=== PATIENT | female | born 1960 | race Caucasian/White ===

== ENCOUNTER 2017-04-17 20:15 | Emergency (ER) | payer MEDICARE, OTHER ==
[~2017-04-17] VITALS: Ht 157.5 cm; Wt 43.1 kg
[~2017-04-17 20:15] MED LIST: ALBU90OI INH; AMIT10; AMIT50 PO; AMOCLA500 PO; ATOR10 PO; CONEST.625 PO; CYCL10 PO; Cipro500 MG PO; ESTMEDA PO; FLURBIPROFEN PO; Flagyl500 MG PO; GABA300 PO; GABA400 PO; HYDACE5; HYDACE5 PO; HYDR1TAB94 PO; INDO25; LISI5 PO; MEDR2.5 PO; METPRE4DP PO; PRED10 PO; Zofran8 MG PO
== END 2017-04-17 23:33 | disposition home or self-care (01) ==
LOC: ER 20:15
DX: S59.201A Unspecified physeal fracture of lower end of radius, right arm, initial encounter for closed fracture (principal); S52.611A Displaced fracture of right ulna styloid process, initial encounter for closed fracture; F17.200 Nicotine dependence, unspecified, uncomplicated; Z88.2 Allergy status to sulfonamides; Z79.899 Other long term (current) drug therapy; W19.XXXA Unspecified fall, initial encounter; Y92.488 Other paved roadways as the place of occurrence of the external cause
CPT/HCPCS: 25605; 73090; 73100; 73110; 96374; 99284; J1170

== ENCOUNTER 2017-04-22 10:56 | Day surgery (SDC) | payer MEDICARE, OTHER ==
[~2017-04-22] VITALS: Ht 154.9 cm; Wt 43.1 kg
== END 2017-04-22 22:54 | disposition home or self-care (01) ==
LOC: ORSCMMR 10:56 → ORD 14:30 → ORSCMMR 14:30
PROVIDERS: Orthopaedic Surgery
PROC: 0PSH34Z Reposition Right Radius with Internal Fixation Device, Percutaneous Approach (ICD-10-PCS; principal; 2017-04-22 12:30)
DX: S52.501A Unspecified fracture of the lower end of right radius, initial encounter for closed fracture (principal); I10 Essential (primary) hypertension; M79.7 Fibromyalgia; R73.03 Prediabetes; Z79.899 Other long term (current) drug therapy; F17.210 Nicotine dependence, cigarettes, uncomplicated
CPT/HCPCS: 82947; C1769; J0171; J0690; J1200; J2250; J2405; J3010; J7120

== ENCOUNTER → 2018-09-15 | Outpatient (CLI) | payer MEDICARE ==
[2018-09-17 15:06] LABS: HPV 16 Negative (Negative); HPV 18 Negative (Negative); HPV OTHER HR TYPES Negative (Negative)
== END | disposition home or self-care (01) ==
LOC: LAB 16:00 → LAB SHORT 16:00
PROVIDERS: Family Medicine
DX: Z12.72 Encounter for screening for malignant neoplasm of vagina (principal); Z90.710 Acquired absence of both cervix and uterus
CPT/HCPCS: 87624; G0145

== ENCOUNTER 2018-12-30 08:03 | Day surgery (SDC) | payer MEDICARE | END 2018-12-30 22:59 | disposition home or self-care (01) | LOC: RAD 08:03 → MRI 10:00 → RAD 22:59 | DX: M19.031 Primary osteoarthritis, right wrist (principal); M24.131 Other articular cartilage disorders, right wrist | CPT/HCPCS: 20605; 73222; 77002; A9577; Q9967 ==

== ENCOUNTER 2019-01-05 10:10 | Day surgery (SDC) | payer MEDICARE ==
[~2019-01-05] VITALS: Ht 154.9 cm; Wt 43.2 kg
[2019-01-05] MEDS ORDERED: GABA300 PO (11:59)
[2019-01-05] MEDS ORDERED: ALBU90OI INH (12:00)
[2019-01-05] MEDS ORDERED: AMIT50 PO (12:02)
[2019-01-05] MEDS ORDERED: ESTR2 PO (12:03)
--- NOTE | 2019-01-05 14:09 | NUR ---
01/05/19 2729 Amrita Guzman PT ARRIVES TO SDU AND COMPLAINS HER LEGS ARE ITCHY, I ASKED IF THIS WAS SOMETHING NEW AND SHE STATES THAT THE WEATHER HAS DRIED OUT HER SKIN AND THAT IS WHY SHE IS ITCHY. SHE HAS NO COMPLAINTS OF PAIN OR NAUSEA, VSS, CALL LIGHT IN REACH AND THREE FAMILY MEMBERS ARE BY HER SIDE. SHE IS TOLERATING FLUIDS.
== END 2019-01-05 14:40 | disposition home or self-care (01) ==
LOC: ORSCSDS 10:10
PROVIDERS: Orthopaedic Surgery
PROC: 0RBN4ZZ Excision of Right Wrist Joint, Percutaneous Endoscopic Approach (ICD-10-PCS; principal; 2019-01-05 11:30)
DX: S63.301A Traumatic rupture of unspecified ligament of right wrist, initial encounter (principal); S52.501A Unspecified fracture of the lower end of right radius, initial encounter for closed fracture; I10 Essential (primary) hypertension; E11.9 Type 2 diabetes mellitus without complications; Z87.891 Personal history of nicotine dependence; Z79.899 Other long term (current) drug therapy
CPT/HCPCS: J0171; J0690; J1100; J2250; J2370; J2405; J2704; J2795; J3010; J7120

== ENCOUNTER 2023-02-20 08:05 | Day surgery (SDC) | payer MEDICARE ==
[2023-02-20] VITALS (10 sets, daily range): BP systolic 13–145; BP diastolic 61–101
[~2023-02-20] VITALS: Ht 154.9 cm; Wt 45.6 kg
[~2023-02-20 08:05] MED LIST changes: +BISA5EC PO; +ESTR2 PO; +HYDCHL25 PO; +NAPR500 PO
--- NOTE | 2023-02-20 08:51 | NUR ---
Ambulatory in Day Surgery History, Chart, Medications and Allergies reviewed before start of procedure.Pre-Op teaching done. Pt verbalizes understanding. Patient confirms NPO status and agrees with scheduled surgery. Patient States Post-Procedure ride home has been arranged.
--- NOTE | 2023-02-20 11:46 | NUR ---
Discharge instructions reviewed with patient. Patient verbalizes understanding. Copy given to patient to take home. PT ITCHING SKIN, NO OTHER COMPLAINTS. INSTRUCTED PT TO NOTIFY EITHER DAY SURGERY OR DR IBARRA'S OFFICE IF INCREASE IN ITCHINESS/ OR NEW SIGNS OF REACTION OCCUR. PT DRESSED AND Discharged via wheelchair to private car for ride home.
== END 2023-02-20 11:48 | disposition home or self-care (01) ==
LOC: ORSCMMR 08:05 → ORD 09:45 → ORSCMMR 11:48
PROVIDERS: Surgery
PROC: B543ZZA Ultrasonography of Right Jugular Veins, Guidance (ICD-10-PCS; principal; 2023-02-20 09:45)
PROC: 05HM33Z Insertion of Infusion Device into Right Internal Jugular Vein, Percutaneous Approach (ICD-10-PCS; principal; 2023-02-20 09:45)
PROC: 0JH63WZ Insertion of Totally Implantable Vascular Access Device into Chest Subcutaneous Tissue and Fascia, Percutaneous Approach (ICD-10-PCS; principal; 2023-02-20 09:45)
DX: C50.812 Malignant neoplasm of overlapping sites of left female breast (principal); C77.3 Secondary and unspecified malignant neoplasm of axilla and upper limb lymph nodes; Z17.0 Estrogen receptor positive status [ER+]; I10 Essential (primary) hypertension; J45.909 Unspecified asthma, uncomplicated; F17.210 Nicotine dependence, cigarettes, uncomplicated; E78.5 Hyperlipidemia, unspecified; Z85.41 Personal history of malignant neoplasm of cervix uteri; Z79.899 Other long term (current) drug therapy
CPT/HCPCS: 77001; C1788; J0690; J1100; J1200; J1642; J1720; J2250; J2371; J2405; J2704; J3010; J7120

== ENCOUNTER 2023-08-29 05:50 | Day surgery (SDC) | payer MEDICARE ==
[2023-08-29] VITALS (14 sets, daily range): BP systolic 101–153; BP diastolic 74–104
[~2023-08-29] VITALS: Ht 157.5 cm; Wt 43.2 kg
[~2023-08-29 05:50] MED LIST changes: +AMIT25 PO; +OXYC5 PO
[2023-08-29] MEDS ORDERED: Lactated Ringer's 1,000 ML IV SCH (06:15)
[2023-08-29] MEDS ORDERED: Clindamycin 600mg in D5W 50 ML IV SCH (06:35)
--- NOTE | 2023-08-29 06:49 | NUR ---
PT AXOX4, AMBULATES WITH STEADY GAIT, WHEEZES IN BILAT UPPER BASES OF LUNGS ON INSPIRATION THAT CLEARS WITH COUGH.
[2023-08-29] MEDS ORDERED: propofoL 20 ML IV ONE (06:54)
[2023-08-29] MEDS ORDERED: FentaNYL Citrate 50 MCG/ML 2 ML Injection IV ONE ×2 (06:54→09:17)
[2023-08-29] MEDS ORDERED: Midazolam HCl 1MG / ML 2ML Vial IV ONE (07:00)
[2023-08-29] MEDS ORDERED: Lidocaine HCl 1% 5 ML SYR INJ ONE (07:05)
[2023-08-29] MEDS ORDERED: FentaNYL Citrate 50 MCG/ML 2 ML Injection IV PRN ×3 (07:05)
[2023-08-29] MEDS ORDERED: Bupivacaine 0.5% HCl 5 MG/ML 30MLVIAL ONE (07:07)
[2023-08-29] MEDS ORDERED: DiphenhydrAMINE HCl 50 MG/ML 1ML Vial IV ONE (07:10)
[2023-08-29] MEDS ORDERED: Methylene Blue 1% 100 MG/10 ML VIAL ONE (07:16)
[2023-08-29] MEDS ORDERED: ePHEDrine Sulfate 50 MG/ML 1ML Injection IV ONE (07:37)
[2023-08-29] MEDS ORDERED: Phenylephrine HCl 100 MCG/ML-NS 10MLSYR (1MG/10ML) IV ONE (07:37)
[2023-08-29] MEDS ORDERED: Dexamethasone Sod Phos 10 MG/ML 1ML VIAL IV ONE (07:41)
[2023-08-29] MEDS ORDERED: Ondansetron HCl 2 MG / ML 2ML Vial IV ONE (07:41)
[2023-08-29] MEDS ORDERED: Phenylephrine HCl 10mg/ml 1 ml Vial IV ONE (07:49)
[2023-08-29] MEDS ORDERED: HYDROcodone 5-APAP 325 TAB PO PRN (10:45)
--- NOTE | 2023-08-29 12:10 | NUR ---
DISCHARGE SUMMARY PT A&OX4, VSS/RA, MANUELITO PO, VOIDED IN PACU, AMB, PAIN MANAGED, IV DC'D, DC INS PROVIDED, PT AND MARIA ISABEL REP UNDERSTANDING THOSE INSTRUCTIONS. LEFT FLOOR VIA WC WITH DC VOL WITH ALL PERSONAL POSSESSIONS INCLUDING DC PACKET, PRINTED DRAIN INS, GAUZE, STRAPS FOR BR BINDER AND NORCO SCRIPT.
== END 2023-08-29 22:51 | disposition home or self-care (01) ==
LOC: ORSCMMR 05:50 → ORD 07:30 → ORSCMMR 07:30
PROVIDERS: Surgery
PROC: 07B60ZX Excision of Left Axillary Lymphatic, Open Approach, Diagnostic (ICD-10-PCS; principal; 2023-08-29 07:30)
DX: C77.3 Secondary and unspecified malignant neoplasm of axilla and upper limb lymph nodes (principal); C50.912 Malignant neoplasm of unspecified site of left female breast; I10 Essential (primary) hypertension; J44.9 Chronic obstructive pulmonary disease, unspecified; M79.7 Fibromyalgia; Z79.899 Other long term (current) drug therapy; E78.5 Hyperlipidemia, unspecified; F17.210 Nicotine dependence, cigarettes, uncomplicated
CPT/HCPCS: 88307; A9270; J1100; J1200; J2371; J2405; J2704; J3010; J7120; Q9968

== ENCOUNTER 2023-08-30 12:01 | Emergency (ER) | payer MEDICARE ==
[~2023-08-30] VITALS: Ht 157.5 cm; Wt 42.2 kg
[2023-08-30 12:17] VITALS: BP 118/84
== END 2023-08-30 13:05 | disposition home or self-care (01) ==
LOC: ER 12:01
DX: Z48.03 Encounter for change or removal of drains (principal); F17.210 Nicotine dependence, cigarettes, uncomplicated; Z88.2 Allergy status to sulfonamides; Z79.899 Other long term (current) drug therapy
CPT/HCPCS: 99282

== ENCOUNTER → 2025-01-28 | Outpatient (CLI) | payer MEDICARE | END | disposition home or self-care (01) | LOC: LAB 17:31 → LAB SHORT 17:31 | PROVIDERS: Family Medicine | DX: Z01.419 Encounter for gynecological examination (general) (routine) without abnormal findings (principal) | CPT/HCPCS: 87624; G0145 ==